=== PATIENT | female | born 1985 | race Caucasian/White ===

== ENCOUNTER → 2018-03-04 | Outpatient (CLI) | payer OTHER ==
[~2018-03-04] MED LIST: PRENTAB26 PO
== END | disposition home or self-care (01) ==
LOC: C.LAB1850 16:49
PROVIDERS: ATTEND Obstetrics & Gynecology
DX: Z34.82 Encounter for supervision of other normal pregnancy, second trimester (principal)

== ENCOUNTER 2018-08-07 08:01 | Inpatient (IN) ==
--- NOTE | 2018-08-07 08:22 | History & Physical Report ---
Date of Service August 07, 2018 Assessment & Plan (1) Normal labor and delivery: Admit, expectant management of labor for now. Epidural if requested. History of Present Illness Chief Complaint: 32yo at 38 6/7 with painful contractions Q3-5min for one hour. No LOF, VB. Good FM. record reviewed. Rh neg and GBS neg. Preg c/b vWD for which hematology has been involved. Levels of vWF have been elevated during and at this time the feeling is that patient should not require hemate-P (supplemental vWF IV) prior to either epidural or delivery. Anesthesiologist cloth seconds sorter made aware of this patient and her history. Patient at this time planning to go without pain relief, as she did for her first baby 14 years ago. Primary Care Provider: Skyler Moe Allergies Allergy/AdvReac Type Severity Reaction Status Date / Time No Known Allergies Allergy Unverified 12/22/17 12:11 Home Medications Home Medications Medication Instructions Recorded Confirmed Type PNV cmb#95-ferrous fumarate-FA 1 tab PO HS 08/05/18 08/05/18 History [] Past Med/Surg History Medical History Von Willebrand disease Social History Smoking Status: Never smoker Hx Alcohol Use: No Hx Substance Use: No Physical Exam 2 Vital Signs (Past 24 Hours): Last Vital Signs Pulse 79 08/07/18 08:13 BP 118/61 08/07/18 08:13 Physical Exam: FHT Cat 1 Makena q-5 irreg Cvx 5/80/-1
[2018-08-07 08:41] LABS: Hemoglobin 13.8 g/dL (12.0-16.0); Mean Corpuscular Volume 89.1 fL (80-100); Mean Platelet Volume 8.9 fL (7.4-10.4); Platelet Count 209 K/uL (130-400); RDW Coefficient of Variation 13.7 % (11.5-14.5); RDW Standard Deviation 44.5 fL (36.4-46.3); Red Blood Count 4.49 M/uL (4.2-5.4); White Blood Count 12.69 K/uL (4.8-10.8)
[2018-08-07 08:44] LABS: Mean Corpuscular Hgb Conc 34.5 g/dL (32-36)
[2018-08-07] MEDS ORDERED: LACTATED RINGER'S 1,000 ML IV SCH (09:00)
[2018-08-07] MEDS ORDERED: OXYTOCIN 30 UNITS/500 ML BAG IV PRN ×2 (09:00→11:38)
[2018-08-07] MEDS: LACTATED RINGER'S 1,000 ML IV PRN ×2 (11:34→12:39)
[2018-08-07] MEDS ORDERED: ePHEDrine sulfate 50 MG/ML AMP ONE (11:37)
[2018-08-07] MEDS ORDERED: BUPIVACAINE 0.25% 30 ML VIAL ONE (11:37)
[2018-08-07] MEDS ORDERED: fentaNYL citrate 100 MCG/2 ML VIAL ONE (11:37)
[2018-08-07] MEDS ORDERED: fentaNYL 2MCG/ML ROPIV 1.25MG/ML 100 ML BAG EPI ONE (11:38)
[2018-08-07] MEDS ORDERED: LACTATED RINGER'S 1,000 ML IV PRN ×2 (11:38→13:20)
--- NOTE | 2018-08-07 11:38 | Labor Progress Brief Note ---
Date of Service August 07, 2018 Subjective Very painful, in tears and stating she is not sure she can go on. Still declines epidural and says this is because she is afraid of needles. Patient's mom and FOB at bedside appear encouraging for her to get the epidural but patient very afraid. Assessment & Plan (1) Normal labor and delivery: Patient with stalled cervical dilation and a great deal of discomfort. Will need pitocin to bring contractions closer together and continue progress. Patient very reluctant to accept epidural for pain relief and aware that it is too close to delivery for IV narcotic to be recommended due to effects. Continues to be tearful and state she isn't sure she can do this. Agrees to pitocin. Counseling provided about epidural option and will await patient decision if she wishes to have one or not. Physical Exam 2 Vital Signs (Past 24 Hours): Last Vital Signs Temp 36.4 C L 08/07/18 11:05 Pulse 81 08/07/18 10:23 Resp 20 08/07/18 11:05 BP 117/64 08/07/18 10:23 Physical Exam: FHT 140 mod salvatore +acc -dec [place] Q3-5 irreg. Cvx 8/80/-2 which is unchanged from RN exam about an hour ago.
--- NOTE | 2018-08-07 12:10 | Anesthesiology Consultation ---
Date of Service August 07, 2018 Assessment & Plan (1) Encounter for pre-operative examination: Chart Review Chart Review: Acceptable Risk for Labor Epidural The patient has a history of Von Willebrands disease. She was seen by Dr. Pratt in hematology. Per Dr. Pratt the patient does not require any intervention like DDAVP since her levels have been fine and is acceptable to receive an epidural. I informed the patient of the signs and symptoms of epidural hematoma/abscess including sudden loss of bowel or bladder control, sudden weakness or numbness, severe back pain, abnormal discharge from the back or fever. I insructed the patient to go to the ED immediately with any of these symptoms and to tell them that she had an epidural as this is a sugical emergency. The patient undestands and agrees. History Height/Weight Height: 5 ft 2 in Weight: 82.327 kg Allergies Allergy/AdvReac Type Severity Reaction Status Date / Time No Known Allergies Allergy Verified 08/07/18 08:38 Medications Home Medications Medication Instructions Recorded Confirmed Last Taken vit-iron fum-folic ac 1 tab PO DAILY 08/07/18 08/07/18 08/06/18 18:00 [ Vitamin] Active Medications Generic Name Dose Route Start Last Admin Trade Name Freq PRN Reason Stop Dose Admin Lactated Ringer's 1,000 mls @ 999 mls/hr 08/07/18 08:17 08/07/18 11:34 Lr IV 09/06/18 08:16 999 mls/hr .Q1H1M PRN Administration (Pre-Anesthesia) Oxytocin 30 units in 500 mls @ 1 mls/hr 08/07/18 11:38 08/07/18 12:09 Pitocin IV 08/09/18 11:37 0.06 units/hr .Q24H PRN 1 mls/hr Labor Induction/Augmentation Administration Protocol 0.06 UNITS/HR Past Medical History Medical History Von Willebrand disease Social History Smoking Status: Never smoker Hx Alcohol Use: No Hx Substance Use: No Physical Exam Vital Signs Last Vital Signs Temp 36.4 C L 08/07/18 11:05 Pulse 81 08/07/18 10:23 Resp 20 08/07/18 11:05 BP 117/64 08/07/18 10:23 Testing Laboratory Results 08/07/18 08:28
[2018-08-07] MEDS ORDERED: DiphenhydrAMINE HCL 50 MG/ML VIAL IV PRN (13:20)
[2018-08-07] MEDS ORDERED: NALOXONE HCL 1 MG in SODIUM CHLORIDE 0.9% 1000ML 1,000 ML IV PRN (13:20)
[2018-08-07] MEDS ORDERED: NALBUPHINE HCL INJ 10 MG/ML AMP IV PRN (13:20)
[2018-08-07] MEDS ORDERED: NALOXONE HCL 0.4 MG/1 ML VIAL/CARP IV PRN (13:20)
[2018-08-07] MEDS ORDERED: ePHEDrine sulfate 50 MG/ML AMP IV PRN (13:20)
[2018-08-07] MEDS ORDERED: ONDANSETRON INJ 2 MG/ML 2 ML VIAL IV PRN (13:20)
[2018-08-07] MEDS ORDERED: fentaNYL 2MCG/ML ROPIV 1.25MG/ML 100 ML BAG EPI PRN (13:20)
[2018-08-07] MEDS ORDERED: HYDROCORTISONE ACETATE 25 MG SUPP PR PRN (17:14)
[2018-08-07] MEDS ORDERED: DIPHTHERIA/TETANUS/PERTUSSIS 0.5 ML SYR/VIAL IM ONE (17:14)
[2018-08-07] MEDS ORDERED: BISACODYL 10 MG SUPP PR PRN (17:14)
[2018-08-07] MEDS ORDERED: BENZOCAINE 20% AER SPR 82.5 GM CAN EXT PRN (17:14)
[2018-08-07] MEDS ORDERED: SUPERCREAM 0.870% 15 GM JAR EXT PRN (17:14)
[2018-08-07] MEDS ORDERED: ACETAMINOPHEN 325 MG TAB PO PRN (17:14)
--- NOTE | 2018-08-07 17:21 | Procedure Note ---
Vaginal Delivery Summary Date of Service August 07, 2018 Supervising Physician Co-Signing Physician Notes Patient pushed to deliver a viable infant in OA presentation. No nuchal cord, no difficulty delivering shoulders or body. Infant placed on maternal abdomen while cord doubly clamped and cut by FOB. Placenta S/I/3VC, though a 1" round area near the center was noted to be "empty." This has an appearance similar to a missing cotyledon except that the membrane here is completely smooth and does not seem to ever have had any cotyledon attached to it. Fundus is completely firm, lochia is minimal, and uterus actually contracted so well that manual exploration is impossible after exam of the placenta. Doubt retained POC but will send placenta for exam and will watch for PPH. No lacerations of cervix, vagina or perineum requiring repair.
[2018-08-07] MEDS ORDERED: miSOPROStol 200 MCG TAB ONE (17:41)
--- NOTE | 2018-08-07 19:13 | Anesthesiology Progress Note ---
Date of Service August 07, 2018 Anesthesia Post Procedure Vital Signs Vital Signs: Temp Pulse Resp BP Pulse Ox 08/07/18 19:04 115 H 114/65 08/07/18 18:49 93 H 116/61 08/07/18 18:34 96 H 111/59 L 08/07/18 18:19 94 H 105/61 08/07/18 17:49 91 H 95/50 L 08/07/18 17:48 20 08/07/18 17:34 93 H 105/53 L 08/07/18 17:33 20 08/07/18 17:19 89 118/57 L 08/07/18 17:18 20 08/07/18 17:03 36.6 C 78 20 113/63 08/07/18 16:49 127 H 111/61 08/07/18 16:47 87 83 L 08/07/18 16:41 86 90 08/07/18 16:37 82 79 L 08/07/18 16:35 87 87 L 08/07/18 16:34 81 113/67 08/07/18 16:30 81 85 L 08/07/18 16:27 74 95 08/07/18 16:23 79 92 08/07/18 16:19 71 118/56 L 08/07/18 16:17 92 H 92 08/07/18 16:12 83 90 08/07/18 16:07 98 H 96 08/07/18 16:05 114 H 116/58 L 08/07/18 16:00 92 H 89 L 08/07/18 15:57 85 96 08/07/18 15:53 91 H 91 08/07/18 15:49 77 106/58 L 08/07/18 15:47 99 H 97 08/07/18 15:43 89 92 08/07/18 15:37 82 97 08/07/18 15:35 74 95/50 L 08/07/18 15:30 20 08/07/18 15:27 81 96 08/07/18 15:20 80 100/56 L 08/07/18 15:17 86 97 08/07/18 15:07 95 H 96 08/07/18 15:05 80 98/61 L 08/07/18 15:00 37.1 C 20 08/07/18 14:57 104 H 97 08/07/18 14:49 71 99/54 L 08/07/18 14:47 80 95 08/07/18 14:37 85 96 08/07/18 14:34 78 100/58 L 08/07/18 14:27 73 96 08/07/18 14:20 75 109/55 L 08/07/18 14:17 74 95 08/07/18 14:07 80 95 08/07/18 14:06 75 111/57 L 08/07/18 13:57 83 96 08/07/18 13:50 77 102/55 L 08/07/18 13:47 79 96 08/07/18 13:37 81 94 08/07/18 13:35 67 124/59 L 08/07/18 13:27 79 96 08/07/18 13:21 70 110/53 L 08/07/18 13:17 75 95 08/07/18 13:07 76 96 08/07/18 13:06 70 121/57 L 08/07/18 13:03 68 118/56 L 08/07/18 13:02 82 96 08/07/18 13:00 36.6 C 75 20 110/55 L 08/07/18 12:59 75 114/51 L 08/07/18 12:57 76 117/64 96 08/07/18 12:54 70 112/54 L 08/07/18 12:53 69 112/54 L 08/07/18 12:52 72 96 08/07/18 12:51 73 135/63 08/07/18 12:48 75 97/51 L 08/07/18 12:47 73 96 08/07/18 12:42 92 H 98 08/07/18 12:38 84 113/58 L 08/07/18 12:37 82 94 08/07/18 12:32 91 H 94 08/07/18 12:31 84 116/65 08/07/18 12:30 84 94 08/07/18 12:27 108 H 93 08/07/18 12:23 94 H 94 08/07/18 12:22 96 H 95 08/07/18 12:12 74 115/64 08/07/18 12:09 92 H 119/70 08/07/18 11:05 36.4 C L 20 08/07/18 10:23 81 117/64 08/07/18 08:44 36.8 C 79 20 118/71 08/07/18 08:13 79 118/61 Pain Intensity Bilateral Abdomen: Pain Intensity: 0 Notes Mental Status: alert / awake / arousable Patient Amnestic to Procedure: Yes Nausea / Vomiting: adequately controlled Pain: adequately controlled Airway Patency, RR, SpO2: stable & adequate BP & HR: stable & adequate Hydration State: stable & adequate Anesthetic Complications: no major complications apparent and Pt Satisfied with anesthetic care Notes: The patient was counseled to watch for any new onset of weakness or numbness of her lower extremities or new onset of incontinence. She was told that this is an emergency and to tell a nurse immediately or go to the ER immediately due to possible spinal hematoma.
[2018-08-07] MEDS: IBUPROFEN 600 MG TAB PO PRN (22:07)
[2018-08-08] MEDS: IBUPROFEN 600 MG TAB PO PRN ×2 (04:51→12:11)
[2018-08-08] MEDS: DOCUSATE SODIUM 100 MG CAP PO SCH ×3 (05:06→21:21)
--- NOTE | 2018-08-08 07:03 | Obstetrical Progress Note ---
Date of Service August 08, 2018 Assessment & Plan (1) Spontaneous vaginal delivery: 32 y/o, Hx VWD, , @ 39.6, O-, GBS- PPD #1 Continue routine post- care (2) 39 weeks gestation of : Day #:: 1 Subjective Ambulation: ambulating normally Voiding: no voiding problems Passing Gas:: Yes Diet Tolerance:: regular diet Lochia:: Small Feeding Type:: breast feeding Current Pain Level(1-10): 0 Juliana states she is doing well this morning. She denies fever, chills, shortness of breath, chest pain, headache, nausea, vomiting. Physical Exam Vital Signs (Past 24 Hours) Last Vital Signs Temp 36.5 C 08/08/18 03:18 Pulse 98 H 08/08/18 03:18 Resp 20 08/08/18 03:18 BP 99/59 L 08/08/18 03:18 Pulse Ox 97 08/08/18 03:18 Constitutional WD/WN, vitals as above cooperative Respiratory normal respiratory effort, lungs clear to auscultation Cardiovascular Rate/Rhythm: regular rate and regular rhythm Heart Sounds: no murmur Gastrointestinal (Abdomen) fundus is non-tender, firm, 3-cm below umbilicus Skin no rashes, warm and dry Neurologic moves all extremities and awake Psychiatric Orientation: alert Affect: euthymic affect Results & Data Laboratory Results Laboratory Results - last 24 hr 08/07/18 08:28 WBC 12.69 H RBC 4.49 Hgb 13.8 Hct 40.0 MCV 89.1 MCH 30.7 MCHC 34.5 RDW Std Deviation 44.5 RDW Coeff of [place] 13.7 Plt Count 209 MPV 8.9 Medications Administered Benzocaine (Dermoplast Pain Relieving [place]) 1 appln EXT PRN PRN PRN Reason: Perineal Discomfort Stop: 09/06/18 17:13 Last Admin: 08/07/18 22:07 Dose: 82.5 appln Docusate Sodium (Colace) 100 mg PO BID [place] Stop: 09/06/18 20:59 Last Admin: 08/08/18 05:06 Dose: Not Given Lactated Ringer's (Lr) 1,000 mls @ 999 mls/hr IV .Q1H1M PRN PRN Reason: (Pre-Anesthesia) Stop: 09/06/18 08:16 Last Infusion: 08/07/18 17:13 Dose: 0 mls/hr Infusion: 08/07/18 15:19 Dose: 125 mls/hr Infusion: 08/07/18 13:01 Dose: 125 mls/hr Admin: 08/07/18 12:39 Dose: 999 mls/hr Infusion: 08/07/18 12:35 Dose: 999 mls/hr Admin: 08/07/18 11:34 Dose: 999 mls/hr Oxytocin (Pitocin) 30 units in 500 mls @ 999 mls/hr IV .Q24H PRN; Protocol PRN Reason: Labor Induction/Augmentation Stop: 08/09/18 11:37 Last Titration: 08/07/18 17:01 Dose: 59.94 units/hr, 999 mls/hr Titration: 08/07/18 15:48 Dose: 0.42 units/hr, 7 mls/hr Titration: 08/07/18 13:02 Dose: 0.18 units/hr, 3 mls/hr Admin: 08/07/18 12:09 Dose: 0.06 units/hr, 1 mls/hr Ibuprofen (Motrin) 600 mg PO Q4H PRN PRN Reason: Pain/HEBERT/Cramping/Fever Stop: 09/06/18 17:13 Last Admin: 08/08/18 04:51 Dose: 600 mg Admin: 08/07/18 22:07 Dose: 600 mg
[2018-08-08] MEDS: PRENATAL VITAMIN 1 TAB PO SCH (09:19)
--- NOTE | 2018-08-08 11:33 | Anesthesiology Progress Note ---
Date of Service August 08, 2018 Anesthesia Post Procedure Vital Signs Vital Signs: Temp Pulse Pulse Resp BP BP Pulse Ox 08/08/18 03:18 36.5 C 98 H 20 99/59 L 97 08/07/18 23:00 36.2 C L 84 20 97 08/07/18 20:40 36.6 C 78 18 106/67 97 08/07/18 20:04 103 H 112/57 L 08/07/18 19:49 104 H 115/53 L 08/07/18 19:34 116 H 111/57 L 08/07/18 19:19 111 H 107/55 L 08/07/18 19:04 115 H 114/65 08/07/18 18:49 93 H 116/61 08/07/18 18:34 96 H 111/59 L 08/07/18 18:33 20 08/07/18 18:19 94 H 105/61 08/07/18 17:49 91 H 95/50 L 08/07/18 17:48 20 08/07/18 17:34 93 H 105/53 L 08/07/18 17:33 20 08/07/18 17:19 89 118/57 L 08/07/18 17:18 20 08/07/18 17:03 36.6 C 78 20 113/63 08/07/18 16:49 127 H 111/61 08/07/18 16:47 87 83 L 08/07/18 16:41 86 90 08/07/18 16:37 82 79 L 08/07/18 16:35 87 87 L 08/07/18 16:34 81 113/67 08/07/18 16:30 81 85 L 08/07/18 16:27 74 95 08/07/18 16:23 79 92 08/07/18 16:19 71 118/56 L 08/07/18 16:17 92 H 92 08/07/18 16:12 83 90 08/07/18 16:07 98 H 96 08/07/18 16:05 114 H 116/58 L 08/07/18 16:00 92 H 89 L 08/07/18 15:57 85 96 08/07/18 15:53 91 H 91 08/07/18 15:49 77 106/58 L 08/07/18 15:47 99 H 97 01/06/19 15:43 89 92 08/07/18 15:37 82 97 08/07/18 15:35 74 95/50 L 08/07/18 15:30 20 08/07/18 15:27 81 96 08/07/18 15:20 80 100/56 L 08/07/18 15:17 86 97 08/07/18 15:07 95 H 96 08/07/18 15:05 80 98/61 L 08/07/18 15:00 37.1 C 20 08/07/18 14:57 104 H 97 08/07/18 14:49 71 99/54 L 08/07/18 14:47 80 95 08/07/18 14:37 85 96 08/07/18 14:34 78 100/58 L 08/07/18 14:27 73 96 08/07/18 14:20 75 109/55 L 08/07/18 14:17 74 95 08/07/18 14:07 80 95 08/07/18 14:06 75 111/57 L 08/07/18 13:57 83 96 08/07/18 13:50 77 102/55 L 08/07/18 13:47 79 96 08/07/18 13:37 81 94 08/07/18 13:35 67 124/59 L 08/07/18 13:27 79 96 08/07/18 13:21 70 110/53 L 08/07/18 13:17 75 95 08/07/18 13:07 76 96 08/07/18 13:06 70 121/57 L 08/07/18 13:03 68 118/56 L 08/07/18 13:02 82 96 08/07/18 13:00 36.6 C 75 20 110/55 L 08/07/18 12:59 75 114/51 L 08/07/18 12:57 76 117/64 96 08/07/18 12:54 70 112/54 L 08/07/18 12:53 69 112/54 L 08/07/18 12:52 72 96 08/07/18 12:51 73 135/63 08/07/18 12:48 75 97/51 L 08/07/18 12:47 73 96 08/07/18 12:42 92 H 98 08/07/18 12:38 84 113/58 L 08/07/18 12:37 82 94 08/07/18 12:32 91 H 94 08/07/18 12:31 84 116/65 08/07/18 12:30 84 94 08/07/18 12:27 108 H 93 08/07/18 12:23 94 H 94 08/07/18 12:22 96 H 95 08/07/18 12:12 74 115/64 08/07/18 12:09 92 H 119/70 Pain Intensity Bilateral Abdomen: Pain Intensity: 0 Notes Mental Status: alert / awake / arousable Nausea / Vomiting: adequately controlled Pain: adequately controlled Airway Patency, RR, SpO2: stable & adequate BP & HR: stable & adequate Hydration State: stable & adequate Neuraxial Anesthesia: was administered and sensory block resolved Anesthetic Complications: no major complications apparent Notes: Patient was extensively counselled on symptoms of epidural hematoma. No signs of neurologic dysfunction at this time.
[2018-08-08] MEDS ORDERED: BISACODYL 5 MG TABEC PO SCH (20:00)
[2018-08-09] MEDS: IBUPROFEN 600 MG TAB PO PRN (04:37)
--- NOTE | 2018-08-09 07:12 | Obstetrical Progress Note ---
Date of Service <DO Carter Beck Last Filed: 08/09/18 07:12> August 09, 2018 Assessment & Plan <Deven Hall DO - Last Filed: 08/09/18 07:12> (1) Spontaneous vaginal delivery: 32 y/o, Hx VWD, , @ 39.6, O-, GBS- PPD #2 Continue routine post- care, until discharge home today Rhogam for O- (2) 39 weeks gestation of : 32 y/o, Hx VWD, , @ 39.6, O-, GBS- Subjective <Deven Hall DO - Last Filed: 08/09/18 07:12> Ambulation: ambulating normally Voiding: no voiding problems Passing Gas:: Yes Diet Tolerance:: regular diet Lochia:: Small Feeding Type:: breast feeding Current Pain Level(1-10): 0 Juliana states she is doing well this morning. No fevers, chills, chest pain, shortness of breath, nausea/vomiting. She states she is ready to be discharged home today. Physical Exam <Deven Hall DO - Last Filed: 08/09/18 07:12> Vital Signs (Past 24 Hours) Last Vital Signs Temp 36.4 C L 08/08/18 23:20 Pulse 79 08/08/18 23:20 Resp 20 08/08/18 23:20 BP 107/67 08/08/18 23:20 Pulse Ox 98 08/08/18 23:20 Constitutional WD/WN, vitals as above cooperative Respiratory normal respiratory effort, lungs clear to auscultation Cardiovascular Rate/Rhythm: regular rate and regular rhythm Heart Sounds: no murmur Gastrointestinal (Abdomen) Percussion/Palpation: abdomen soft; abdomen nontender fundus is firm about 4cm below umbilicus, non-tender Skin no rashes, warm and dry Neurologic moves all extremities and awake Psychiatric Orientation: alert Affect: euthymic affect Results & Data <DO Carter Beck Last Filed: 08/09/18 07:12> Medications Administered Benzocaine (Dermoplast Pain Relieving [place]) 1 appln EXT PRN PRN PRN Reason: Perineal Discomfort Stop: 09/06/18 17:13 Last Admin: 08/07/18 22:07 Dose: 82.5 appln Docusate Sodium (Colace) 100 mg PO BID [facility] Stop: 09/06/18 20:59 Last Admin: 08/08/18 21:21 Dose: 100 mg Admin: 08/08/18 09:19 Dose: 100 mg Admin: 08/08/18 05:06 Dose: Not Given Lactated Ringer's (Lr) 1,000 mls @ 999 mls/hr IV .Q1H1M PRN PRN Reason: (Pre-Anesthesia) Stop: 09/06/18 08:16 Last Infusion: 08/07/18 17:13 Dose: 0 mls/hr Infusion: 08/07/18 15:19 Dose: 125 mls/hr Infusion: 08/07/18 13:01 Dose: 125 mls/hr Admin: 08/07/18 12:39 Dose: 999 mls/hr Infusion: 08/07/18 12:35 Dose: 999 mls/hr Admin: 08/07/18 11:34 Dose: 999 mls/hr Oxytocin (Pitocin) 30 units in 500 mls @ 999 mls/hr IV .Q24H PRN; Protocol PRN Reason: Labor Induction/Augmentation Stop: 08/09/18 11:37 Last Titration: 08/07/18 17:30 Dose: 0 units/hr, 0 mls/hr Titration: 08/07/18 17:01 Dose: 59.94 units/hr, 999 mls/hr Titration: 08/07/18 15:48 Dose: 0.42 units/hr, 7 mls/hr Titration: 08/07/18 13:02 Dose: 0.18 units/hr, 3 mls/hr Admin: 08/07/18 12:09 Dose: 0.06 units/hr, 1 mls/hr Ibuprofen (Motrin) 600 mg PO Q4H PRN PRN Reason: Pain/HEBERT/Cramping/Fever Stop: 09/06/18 17:13 Last Admin: 08/09/18 04:37 Dose: 600 mg Admin: 08/08/18 12:11 Dose: 600 mg Admin: 08/08/18 04:51 Dose: 600 mg Admin: 08/07/18 22:07 Dose: 600 mg Prenat Multivit/[place]/Iron/Folic Ac ( Vitamin) 1 tab PO QAM [facility] Stop: 09/07/18 08:59 Last Admin: 08/08/18 09:19 Dose: 1 tab <Wm Shah MD, FACOG - Last Filed: 08/09/18 07:52> Co-Signing Physician Notes Resident Physician Supervision Note: I interviewed and examined the patient. Discussed with Dr. Hall and agree with findings and plan as documented in the note. Any exceptions or clarifications are listed here: [None] Documented By: Wm Shah MD, FACOG
[2018-08-09 08:07] LABS: Hematocrit (blood only) 35.5 % (37-47); Hemoglobin 11.8 g/dL (12.0-16.0)
[2018-08-09] MEDS: DOCUSATE SODIUM 100 MG CAP PO SCH (08:58)
[2018-08-09] MEDS: PRENATAL VITAMIN 1 TAB PO SCH (08:58)
== END 2018-08-09 12:58 | disposition home or self-care (01) | DRG 806 ==
LOC: OPB 08:01 → 4S1 08:01 → 4S2 20:40